=== PATIENT | male | born 1935 | race Caucasian/White ===

== ENCOUNTER 2023-03-18 00:44 | Emergency (ER) | payer OTHER, MEDICARE ==
[~2023-03-18] VITALS: Ht 177.8 cm; Wt 89.9 kg
[2023-03-18 02:30] LABS: BASO % 0.4 % (0.0-1.0); EOS # 0.2 10^3/uL (0.0-0.5); EOS % 2.2 % (0.0-3.0); HEMATOCRIT 39.1 % (42.0-52.0); HEMOGLOBIN 12.9 g/dl (13.5-17.5); LYMPH # 0.8 10^3/uL (1.5-5.0); LYMPH % 11.4 % (24.0-44.0); MEAN CORPUSCULAR HEMOGLOBIN 31.7 pg (27.0-33.0); MEAN CORPUSCULAR VOLUME 96.1 fl (80.0-96.0); MONO # 0.7 10^3/uL (0.0-0.8); MONO % 9.1 % (2.0-8.0); NEUTROPHILS # 5.6 10^3/uL (1.5-8.5); NEUTROPHILS % 76.6 % (36.0-66.0); PLATELET COUNT, AUTOMATED 202 10^3/uL (150-450); RED BLOOD COUNT 4.07 10^6/uL (4.30-6.10); WHITE BLOOD COUNT 7.3 10^3/uL (4.0-10.0)
[2023-03-18 02:38] LABS: BLOOD UREA NITROGEN 17 MG/DL (9-23); CALCIUM LEVEL 9.1 MG/DL (8.3-10.6); CARBON DIOXIDE LEVEL 25 MMOL/L (20-31); CHLORIDE LEVEL 112 MMOL/L (98-107); CK-MB VALUE MASS 1.6 NG/ML (<3.6); CREATININE FOR GFR 0.72 MG/DL (0.70-1.30); GLOMERULAR FILTRATION RATE > 60.0 (>35); GLUCOSE, FASTING 131 MG/DL (74-106); POTASSIUM SERUM 3.8 MMOL/L (3.5-5.1); SODIUM LEVEL 144 MMOL/L (136-145)
[2023-03-18 02:40] LABS: CPK CREATINE PHOSPHOKINASE 96 U/L (46-171); MB/CK RELATIVE INDEX 1.66 (< OR =4)
[2023-03-18 03:05] VITALS: BP 208/98
[2023-03-18] MEDS: NITROGLYCERIN 0.4MG SUBL TABLET SL PRN ×3 (03:05→03:15)
[2023-03-18 03:33] LABS: CK-MB VALUE MASS 1.6 NG/ML (<3.6)
[2023-03-18 03:35] LABS: MB/CK RELATIVE INDEX 2.1 (< OR =4)
[2023-03-18 05:14] LABS: CK-MB VALUE MASS 1.6 NG/ML (<3.6)
[2023-03-18 05:15] LABS: MB/CK RELATIVE INDEX 2.1 (< OR =4)
[2023-03-18 05:19] VITALS: BP 164/84; TEMP 98.1; O2SAT 98
[2023-03-18] MEDS ORDERED: amLODIPine 5 MG TAB PO ONE (05:30)
== END 2023-03-18 05:50 | disposition home or self-care (01) ==
LOC: M ED 00:44
DX: R07.89 Other chest pain (principal); I10 Essential (primary) hypertension; E78.5 Hyperlipidemia, unspecified; N40.0 Benign prostatic hyperplasia without lower urinary tract symptoms; H40.9 Unspecified glaucoma; Z79.82 Long term (current) use of aspirin; Z79.899 Other long term (current) drug therapy

== ENCOUNTER 2023-03-21 06:36 | Emergency (ER) | payer OTHER, MEDICARE ==
[~2023-03-21] VITALS: Ht 177.8 cm; Wt 87.3 kg
[2023-03-21] MEDS ORDERED: CELE1CAP7 PO (06:47)
[2023-03-21] MEDS ORDERED: LISI40TA4 PO (06:47)
[2023-03-21] MEDS ORDERED: ATOR40TA75 PO (06:47)
[2023-03-21] MEDS ORDERED: NITR0.4S14 PO (06:47)
[2023-03-21] MEDS ORDERED: HYDR12CA PO (06:47)
[2023-03-21] MEDS ORDERED: ALFU10TA3 PO (06:47)
[2023-03-21] MEDS ORDERED: TIMO0.5S20 OU (06:47)
[2023-03-21] MEDS ORDERED: hydroCHLOROthiazide 12.5 MG CAPSULE PO ONE (09:15)
[2023-03-21] MEDS ORDERED: ACETAMINOPHEN 325 MG TAB PO ONE (09:15)
[2023-03-21] MEDS ORDERED: lisinopriL 40MG TAB PO ONE (09:15)
[2023-03-21] MEDS ORDERED: diazePAM 2 MG TAB PO ONE (09:15)
[2023-03-21 10:33] VITALS: BP 172/72; TEMP 98.2; O2SAT 94
[2023-03-21] MEDS ORDERED: TRAM50TA2 PO (10:35)
[2023-03-21] MEDS ORDERED: VALI5TAB PO (10:35)
== END 2023-03-21 11:03 | disposition home or self-care (01) ==
LOC: M ED 06:36
DX: S22.42XA Multiple fractures of ribs, left side, initial encounter for closed fracture (principal); W01.0XXA Fall on same level from slipping, tripping and stumbling without subsequent striking against object, initial encounter; Y92.009 Unspecified place in unspecified non-institutional (private) residence as the place of occurrence of the external cause; Y93.01 Activity, walking, marching and hiking; Y99.8 Other external cause status; I11.9 Hypertensive heart disease without heart failure; I25.10 Atherosclerotic heart disease of native coronary artery without angina pectoris; R00.1 Bradycardia, unspecified; Z95.5 Presence of coronary angioplasty implant and graft

== ENCOUNTER 2023-03-22 09:35 | Inpatient (IN) | payer OTHER, MEDICARE ==
[~2023-03-22] VITALS: Ht 177.8 cm; Wt 87.5 kg
[~2023-03-22 09:35] MED LIST: ALFU10TA3 PO; ATOR40TA75 PO; CELE1CAP7 PO; HYDR12CA PO; LISI40TA4 PO; NITR0.4S14 PO; TIMO0.5S20 OU; TRAM50TA2 PO; VALI5TAB PO
[2023-03-22 10:24] LABS: BASO % 0.2 % (0.0-1.0); HEMATOCRIT 37.6 % (42.0-52.0); HEMOGLOBIN 12.6 g/dl (13.5-17.5); LYMPH # 0.5 10^3/uL (1.5-5.0); LYMPH % 5.4 % (24.0-44.0); MEAN CORPUSCULAR HEMOGLOBIN 31.8 pg (27.0-33.0); MEAN CORPUSCULAR HGB CONC 33.5 g/dl (32.0-36.5); MEAN CORPUSCULAR VOLUME 94.9 fl (80.0-96.0); MONO % 10.9 % (2.0-8.0); NEUTROPHILS # 7.6 10^3/uL (1.5-8.5); NEUTROPHILS % 83.1 % (36.0-66.0); PLATELET COUNT, AUTOMATED 216 10^3/uL (150-450); RED BLOOD COUNT 3.96 10^6/uL (4.30-6.10); WHITE BLOOD COUNT 9.2 10^3/uL (4.0-10.0)
[2023-03-22 10:48] LABS: CK-MB VALUE MASS 1.6 NG/ML (<3.6)
[2023-03-22 10:51] LABS: CPK CREATINE PHOSPHOKINASE 127 U/L (46-171); MB/CK RELATIVE INDEX 1.25 (< OR =4)
[2023-03-22 10:52] LABS: ALBUMIN 3.2 G/DL (3.2-5.2); ALKALINE PHOSPHATASE 72 U/L (46-116); ALT/SGPT < 9 U/L (7.0-40); AST/SGOT 9 U/L (<34); BILIRUBIN,DIRECT 0.4 MG/DL (<0.4); BILIRUBIN,TOTAL 1.1 MG/DL (0.3-1.2); BLOOD UREA NITROGEN 20 MG/DL (9-23); CALCIUM LEVEL 9.6 MG/DL (8.3-10.6); CARBON DIOXIDE LEVEL 29 MMOL/L (20-31); CHLORIDE LEVEL 106 MMOL/L (98-107); CREATININE FOR GFR 0.68 MG/DL (0.70-1.30); GLOMERULAR FILTRATION RATE > 60.0 (>35); GLUCOSE, FASTING 119 MG/DL (74-106); POTASSIUM SERUM 3.6 MMOL/L (3.5-5.1); SODIUM LEVEL 142 MMOL/L (136-145); THYROID STIMULATING HORMONE 0.393 uIU/ML (0.55-4.78); TOTAL PROTEIN 5.7 G/DL (5.7-8.2)
[2023-03-22 10:57] LABS: PROCALCITONIN 0.08 ng/ml
[2023-03-22] MEDS ORDERED: hydrALAZINE 20MG/ML 1ML VIAL IV ONE (11:40)
[2023-03-22 12:06] LABS: CK-MB VALUE MASS 1.5 NG/ML (<3.6); MB/CK RELATIVE INDEX 1.12 (< OR =4)
[2023-03-22] MEDS ORDERED: diazePAM 10MG/2ML SYRINGE IV ONE (12:35)
[2023-03-22 12:59] LABS: MAGNESIUM LEVEL 1.4 MG/DL (1.8-2.4)
[2023-03-22] MEDS ORDERED: KETOROLAC 30 MG/ML 1ML VIAL IV ONE (13:20)
[2023-03-22] MEDS ORDERED: MED REC IN PROGRESS XX SCH (13:25)
[2023-03-22] MEDS ORDERED: HOME MED LIST COMPLETE! XX SCH (13:40)
[2023-03-22] MEDS ORDERED: BISACODYL 10MG SUPP PR PRN (14:45)
[2023-03-22] MEDS ORDERED: oxyCODONE 5MG TAB PO PRN (14:45)
[2023-03-22] MEDS ORDERED: FUROSEMIDE 100MG/10ML VIAL IV ONE (16:00)
[2023-03-22 16:25] VITALS: BP 200/80; TEMP 97.9; O2SAT 95
[2023-03-22] MEDS: ACETAMINOPHEN 500 MG TAB PO SCH ×2 (17:04→22:40)
[2023-03-22] MEDS: **hydrALAZINE HCL** 25 MG TAB PO SCH ×2 (17:05→23:46)
[2023-03-22 19:05] VITALS: BP 125/80
[2023-03-22] MEDS ORDERED: HEPARIN SOD (PORCINE) 5000UNITS/ML 1ML VIAL/SYRINGE SC SCH (21:00)
[2023-03-22] MEDS ORDERED: QUEtiapine FUMARATE 12.5 MG HALF-TAB PO SCH (21:00)
[2023-03-22 22:00] VITALS: BP_SYST 162; BP_SYST 172; BP_DIAS 78; TEMP 98.1; O2SAT 94
[2023-03-22] MEDS: KETOROLAC 30 MG/ML 1ML VIAL IV SCH (22:31)
[2023-03-22] MEDS: SENOKOT S TAB PO SCH (22:39)
[2023-03-22] MEDS: MIRALAX *UNIT DOSE* 17GM PACKET PO SCH (22:41)
[2023-03-22 23:03] VITALS: BP 191/76
[2023-03-23] VITALS (36 sets, daily range): BP systolic 83–208; BP diastolic 50–90; TEMP 96.8–98.2; O2SAT 91–100
[2023-03-23] MEDS ORDERED: MAG SULF 1GM/100ML (MAG RUN) 1 GM in IV 1 EA IV ONE ×2 (01:00→08:55)
[2023-03-23] MEDS ORDERED: POTASSIUM CHLORIDE 10MEQ SR TABLET PO ONE (01:00)
[2023-03-23] MEDS: MAG SULF 1GM/100ML (MAG RUN) 1 GM in IV 1 EA IV SCH ×6 (01:07→13:12)
[2023-03-23] MEDS: KETOROLAC 30 MG/ML 1ML VIAL IV SCH ×3 (02:14→14:22)
[2023-03-23 05:57] LABS: BASO % 0.1 % (0.0-1.0); HEMATOCRIT 34.6 % (42.0-52.0); HEMOGLOBIN 11.7 g/dl (13.5-17.5); LYMPH # 0.7 10^3/uL (1.5-5.0); LYMPH % 8.6 % (24.0-44.0); MEAN CORPUSCULAR HEMOGLOBIN 31.7 pg (27.0-33.0); MEAN CORPUSCULAR HGB CONC 33.8 g/dl (32.0-36.5); MEAN CORPUSCULAR VOLUME 93.8 fl (80.0-96.0); MONO # 1.2 10^3/uL (0.0-0.8); NEUTROPHILS # 6.4 10^3/uL (1.5-8.5); NEUTROPHILS % 76.8 % (36.0-66.0); PLATELET COUNT, AUTOMATED 195 10^3/uL (150-450); RED BLOOD COUNT 3.69 10^6/uL (4.30-6.10); WHITE BLOOD COUNT 8.3 10^3/uL (4.0-10.0)
[2023-03-23] MEDS ORDERED: DOBUTamine HCL 500,000 MCG in IV 1 EA IV SCH (06:25)
[2023-03-23 06:28] LABS: BLOOD UREA NITROGEN 27 MG/DL (9-23); CALCIUM LEVEL 9.2 MG/DL (8.3-10.6); CARBON DIOXIDE LEVEL 30 MMOL/L (20-31); CHLORIDE LEVEL 103 MMOL/L (98-107); CREATININE FOR GFR 0.82 MG/DL (0.70-1.30); GLOMERULAR FILTRATION RATE > 60.0 (>35); GLUCOSE, FASTING 107 MG/DL (74-106); POTASSIUM SERUM 3.1 MMOL/L (3.5-5.1); SODIUM LEVEL 141 MMOL/L (136-145)
[2023-03-23] MEDS ORDERED: LR 500 ML IV SCH (06:40)
[2023-03-23] MEDS ORDERED: FUROSEMIDE 40MG/4ML VIAL IV SCH ×2 (09:00)
[2023-03-23] MEDS ORDERED: NITROGLYCERIN 2% OINT 1 GM *U/D* PKT TOP SCH (09:00)
[2023-03-23] MEDS ORDERED: hydrALAZINE 20MG/ML 1ML VIAL IV ONE (09:00)
[2023-03-23] MEDS: ACETAMINOPHEN 500 MG TAB PO SCH (09:00)
[2023-03-23] MEDS: SENOKOT S TAB PO SCH (09:00)
[2023-03-23] MEDS: MIRALAX *UNIT DOSE* 17GM PACKET PO SCH (09:00)
[2023-03-23 09:08] LABS: MAGNESIUM LEVEL 1.9 MG/DL (1.8-2.4)
[2023-03-23] MEDS: NITROGLYCERIN 2% OINT 1 GM *U/D* PKT TOP SCH ×2 (09:53→14:22)
[2023-03-23] MEDS ORDERED: LIDOCAINE 1% MDV 20ML VIAL As Ordered ONE (10:26)
[2023-03-23] MEDS ORDERED: hydrALAZINE 20MG/ML 1ML VIAL IV SCH (11:00)
[2023-03-23] MEDS ORDERED: SODIUM CHLORIDE 0.9% INJ 10 ML SYR IV PRN (12:15)
[2023-03-23 13:46] LABS: CK-MB VALUE MASS 3.7 NG/ML (<3.6); MAGNESIUM LEVEL 2.5 MG/DL (1.8-2.4); MB/CK RELATIVE INDEX 2.72 (< OR =4); POTASSIUM SERUM 2.8 MMOL/L (3.5-5.1)
[2023-03-23] MEDS: KCL 10MEQ/100ML SWI (KRUN) 10 MEQ in IV 1 EA IV SCH ×4 (14:15→19:44)
[2023-03-23] MEDS ORDERED: ceFAZolin SOD 2 GM in IV 1 EA IV ONE (14:30)
[2023-03-23] MEDS ORDERED: LIDOCAINE 1% SDV 30ML VIAL As Ordered ONE (14:43)
[2023-03-23] MEDS ORDERED: ISOVUE-300 61% 100ML VIAL As Ordered ONE (14:43)
[2023-03-23] MEDS ORDERED: AMIODARONE HCL 150 MG/100 ML PREMIXED BAG (NEXTERONE) As Ordered ONE (14:43)
[2023-03-23] MEDS ORDERED: fentaNYL 100 MCG/2 ML INJECTION As Ordered ONE ×3 (14:45→17:05)
[2023-03-23] MEDS ORDERED: propofoL 500 MG/50 ML VIAL As Ordered ONE (15:45)
[2023-03-23] MEDS ORDERED: ceFAZolin 2 GM/D5W 50 ML IV BAG As Ordered ONE (16:30)
[2023-03-23] MEDS ORDERED: SUCCINYLCHOLINE 100MG/5ML SYRINGE As Ordered ONE (16:42)
[2023-03-23] MEDS ORDERED: ETOMIDATE INJ 20MG/10ML VIAL As Ordered ONE (16:42)
[2023-03-23] MEDS ORDERED: KCL 10MEQ/100ML SWI (KRUN) 10 MEQ in IV 1 EA IV SCH (17:00)
[2023-03-23] MEDS ORDERED: PHENYLephrine 500MCG 5ML (100MCG/ML) SYRINGE As Ordered ONE ×2 (17:05→17:40)
[2023-03-23] MEDS ORDERED: ePHEDrine SULFATE 25 MG/5 ML(5MG/ML) SYRINGE As Ordered ONE (17:12)
[2023-03-23] MEDS ORDERED: ONDANSETRON 4MG 2ML VIAL As Ordered ONE (17:12)
[2023-03-23] MEDS ORDERED: METOCLOPRAMIDE INJ 10MG/2ML VIAL As Ordered ONE (17:12)
[2023-03-23] MEDS: MIDAZOLAM INJ 2MG/2ML VIAL IV PRN ×3 (18:06→19:06)
[2023-03-23] MEDS ORDERED: MIDAZOLAM INJ 2MG/2ML VIAL As Ordered ONE ×2 (18:06→18:21)
[2023-03-23 18:31] LABS: ABG BASE EXCESS 1.7 (-2.0-2.0); ABG O2 SATURATION 94.8 % (95.0-99.0); ABG PARTIAL PRESSURE CO2 34.8 mmHg (35.0-45.0); ABG PARTIAL PRESSURE O2 77.6 mmHg (75.0-100.0); ABG STANDARD HCO3 25.9 MMOL/L. (22.0-26.0); ABG TOTAL CO2 26.1 MMOL/L (23.0-31.0); ABG pH (ARTERIAL) 7.474 UNITS (7.350-7.450)
[2023-03-23] MEDS: MIDAZOLAM 100MG/100ML-0.9%NACL 100 MG in IV 1 EA IV SCH (18:56)
[2023-03-23] MEDS ORDERED: PANTOPRAZOLE 40MG VIAL IV SCH (19:00)
[2023-03-23] MEDS ORDERED: FENTANYL DRIP LOCK BOX KEY 1 EACH XX PRN (19:00)
[2023-03-23] MEDS ORDERED: MIDAZOLAM INJ 2MG/2ML VIAL IV STA (19:04)
[2023-03-23] MEDS: fentaNYL 100 MCG/2 ML INJECTION IV PRN (19:22)
[2023-03-23 19:50] LABS: CK-MB VALUE MASS 5.8 NG/ML (<3.6); MAGNESIUM LEVEL 2.3 MG/DL (1.8-2.4); POTASSIUM SERUM 3.3 MMOL/L (3.5-5.1)
[2023-03-23 19:51] LABS: MB/CK RELATIVE INDEX 3.91 (< OR =4)
[2023-03-23] MEDS: CHLORHEXIDINE GLUCONATE 0.12 % 15ML UDC (PERIDEX ORAL RINSE) MT SCH (20:20)
[2023-03-23] MEDS: SODIUM CHLORIDE 0.9% INJ 10 ML SYR IV SCH (20:22)
[2023-03-23] MEDS: fentaNYL CITRATE/NaCl 1,000 MCG in IV 1 EA IV SCH (20:24)
[2023-03-23] MEDS: KCL 20MEQ IN 100ML SWI (KRUN) 20 MEQ in IV 1 EA IV SCH ×8 (20:56→22:36)
[2023-03-23] MEDS ORDERED: HEPARIN SOD (PORCINE) 5000UNITS/ML 1ML VIAL/SYRINGE SQ SCH (21:00)
[2023-03-23 21:03] LABS: HEMATOCRIT 37.4 % (42.0-52.0); HEMOGLOBIN 12.3 g/dl (13.5-17.5); MEAN CORPUSCULAR HEMOGLOBIN 31.1 pg (27.0-33.0); MEAN CORPUSCULAR HGB CONC 32.9 g/dl (32.0-36.5); MEAN CORPUSCULAR VOLUME 94.7 fl (80.0-96.0); PLATELET COUNT, AUTOMATED 215 10^3/uL (150-450); RED BLOOD COUNT 3.95 10^6/uL (4.30-6.10); WHITE BLOOD COUNT 2.6 10^3/uL (4.0-10.0)
[2023-03-23] MEDS ORDERED: LR 1,000 ML IV SCH (23:55)
[2023-03-24] VITALS (43 sets, daily range): BP systolic 95–163; BP diastolic 53–91; TEMP 97.4–101.1; O2SAT 91–98
[2023-03-24] MEDS ORDERED: ceFAZolin SOD 1 GM in D5W MINI-BAG PLUS 50 ML IV SCH (00:30)
[2023-03-24] MEDS ORDERED: SODIUM CHLORIDE 0.9% 1000ML IV SCH (01:10)
[2023-03-24] MEDS ORDERED: VANCOMYCIN HCL 1,250 MG in IV FLUID PLACE HOLDER 1 EA IV SCH (01:10)
[2023-03-24 01:15] LABS: CK-MB VALUE MASS 2.8 NG/ML (<3.6); MAGNESIUM LEVEL 2.1 MG/DL (1.8-2.4)
[2023-03-24] MEDS ORDERED: PIPERACILLIN/TAZOBACTAM SOD 4.5 GM in D5W MINI-BAG PLUS 50 ML IV SCH ×2 (02:00→16:00)
[2023-03-24] MEDS ORDERED: VANCOMYCIN HCL 1,000 MG, VIAL MATE ADAPTER 1 EACH in D5W 250 ML IV ONE ×2 (03:00→04:00)
[2023-03-24] MEDS: fentaNYL 100 MCG/2 ML INJECTION IV PRN (03:10)
[2023-03-24] MEDS ORDERED: ACETAMINOPHEN *IV* 1,000 MG in IV 1 EA IV ONE (04:00)
[2023-03-24 05:18] LABS: HEMATOCRIT 28.9 % (42.0-52.0); HEMOGLOBIN 9.6 g/dl (13.5-17.5); MEAN CORPUSCULAR HEMOGLOBIN 31.7 pg (27.0-33.0); MEAN CORPUSCULAR HGB CONC 33.2 g/dl (32.0-36.5); MEAN CORPUSCULAR VOLUME 95.4 fl (80.0-96.0); PLATELET COUNT, AUTOMATED 142 10^3/uL (150-450); RED BLOOD COUNT 3.03 10^6/uL (4.30-6.10); WHITE BLOOD COUNT 6.8 10^3/uL (4.0-10.0)
[2023-03-24 05:29] LABS: CK-MB VALUE MASS 2.4 NG/ML (<3.6); MAGNESIUM LEVEL 2.1 MG/DL (1.8-2.4); POTASSIUM SERUM 3.7 MMOL/L (3.5-5.1)
[2023-03-24 05:31] LABS: CALCIUM LEVEL 7.8 MG/DL (8.3-10.6); CREATININE FOR GFR 1.32 MG/DL (0.70-1.30); GLOMERULAR FILTRATION RATE 54.6 (>35); MB/CK RELATIVE INDEX 1.77 (< OR =4); POTASSIUM SERUM 3.7 MMOL/L (3.5-5.1)
[2023-03-24] MEDS: SODIUM CHLORIDE 0.9% INJ 10 ML SYR IV SCH ×2 (06:00→17:31)
[2023-03-24 06:05] LABS: ABG BASE EXCESS -0.6 (-2.0-2.0); ABG HCO3 22.6 MMOL/L (22.0-26.0); ABG O2 SATURATION 95.7 % (95.0-99.0); ABG PARTIAL PRESSURE CO2 32.4 mmHg (35.0-45.0); ABG PARTIAL PRESSURE O2 82.8 mmHg (75.0-100.0); ABG STANDARD HCO3 23.9 MMOL/L. (22.0-26.0); ABG TOTAL CO2 23.6 MMOL/L (23.0-31.0); ABG pH (ARTERIAL) 7.462 UNITS (7.350-7.450)
[2023-03-24 06:46] LABS: LYMPHOCYTES 13 % (16-44); MONOCYTES 4 % (0-5); NEUTROPHILS 55 % (28-66)
[2023-03-24 06:47] LABS: HYPOCHROMASIA 1+
[2023-03-24 06:48] LABS: PLATELET CLUMPS SMALL AMT; PLATELET ESTIMATE NORMAL (NORMAL)
[2023-03-24] MEDS: PIPERACILLIN/TAZOBACTAM SOD 4.5 GM in D5W MINI-BAG PLUS 50 ML IV SCH ×3 (09:10→20:37)
[2023-03-24] MEDS: PANTOPRAZOLE 40MG VIAL IV SCH ×2 (09:24→20:37)
[2023-03-24] MEDS: CHLORHEXIDINE GLUCONATE 0.12 % 15ML UDC (PERIDEX ORAL RINSE) MT SCH ×2 (09:25→20:37)
[2023-03-24 09:36] LABS: HEMATOCRIT 30.4 % (42.0-52.0); MEAN CORPUSCULAR HEMOGLOBIN 31.4 pg (27.0-33.0); MEAN CORPUSCULAR HGB CONC 32.9 g/dl (32.0-36.5); MEAN CORPUSCULAR VOLUME 95.6 fl (80.0-96.0); PLATELET COUNT, AUTOMATED 150 10^3/uL (150-450); RED BLOOD COUNT 3.18 10^6/uL (4.30-6.10); WHITE BLOOD COUNT 9.5 10^3/uL (4.0-10.0)
[2023-03-24 10:03] LABS: CALCIUM LEVEL 7.7 MG/DL (8.3-10.6); CREATININE FOR GFR 1.28 MG/DL (0.70-1.30); GLOMERULAR FILTRATION RATE 56.6 (>35)
[2023-03-24] MEDS: LR 1,000 ML IV SCH ×2 (10:31→14:19)
[2023-03-24] MEDS: MIDAZOLAM INJ 2MG/2ML VIAL IV PRN ×2 (14:12→16:14)
[2023-03-24] MEDS: MIDAZOLAM 100MG/100ML-0.9%NACL 100 MG in IV 1 EA IV SCH (14:16)
[2023-03-24] MEDS: fentaNYL CITRATE/NaCl 1,000 MCG in IV 1 EA IV SCH (14:43)
[2023-03-24] MEDS ORDERED: VANCOMYCIN HCL 1,000 MG, VIAL MATE ADAPTER 1 EACH in D5W 250 ML IV SCH (15:00)
[2023-03-24 16:17] LABS: HEMATOCRIT 31.1 % (42.0-52.0); HEMOGLOBIN 10.1 g/dl (13.5-17.5); MEAN CORPUSCULAR HGB CONC 32.5 g/dl (32.0-36.5); MEAN CORPUSCULAR VOLUME 95.4 fl (80.0-96.0); PLATELET COUNT, AUTOMATED 145 10^3/uL (150-450); RED BLOOD COUNT 3.26 10^6/uL (4.30-6.10); WHITE BLOOD COUNT 11.8 10^3/uL (4.0-10.0)
[2023-03-25] VITALS (34 sets, daily range): BP systolic 126–201; BP diastolic 58–94; TEMP 97.6–99.8; O2SAT 90–97
[2023-03-25] MEDS: MIDAZOLAM INJ 2MG/2ML VIAL IV PRN ×4 (04:03→21:38)
[2023-03-25] MEDS: PIPERACILLIN/TAZOBACTAM SOD 4.5 GM in D5W MINI-BAG PLUS 50 ML IV SCH ×4 (04:06→20:08)
[2023-03-25] MEDS: fentaNYL 100 MCG/2 ML INJECTION IV PRN ×3 (04:06→23:56)
[2023-03-25 04:27] LABS: HEMATOCRIT 28.1 % (42.0-52.0); HEMOGLOBIN 9.3 g/dl (13.5-17.5); MEAN CORPUSCULAR HEMOGLOBIN 31.6 pg (27.0-33.0); MEAN CORPUSCULAR HGB CONC 33.1 g/dl (32.0-36.5); MEAN CORPUSCULAR VOLUME 95.6 fl (80.0-96.0); PLATELET COUNT, AUTOMATED 131 10^3/uL (150-450); RED BLOOD COUNT 2.94 10^6/uL (4.30-6.10); WHITE BLOOD COUNT 10.1 10^3/uL (4.0-10.0)
[2023-03-25 04:58] LABS: ALKALINE PHOSPHATASE 39 U/L (46-116); ALT/SGPT < 9 U/L (7.0-40); AST/SGOT 13 U/L (<34); BILIRUBIN,TOTAL 0.7 MG/DL (0.3-1.2); BLOOD UREA NITROGEN 43 MG/DL (9-23); CALCIUM LEVEL 7.9 MG/DL (8.3-10.6); CARBON DIOXIDE LEVEL 28 MMOL/L (20-31); CHLORIDE LEVEL 108 MMOL/L (98-107); CREATININE FOR GFR 1.03 MG/DL (0.70-1.30); GLOMERULAR FILTRATION RATE > 60.0 (>35); GLUCOSE, FASTING 92 MG/DL (74-106); POTASSIUM SERUM 3.5 MMOL/L (3.5-5.1); SODIUM LEVEL 141 MMOL/L (136-145); TOTAL PROTEIN 4.2 G/DL (5.7-8.2)
[2023-03-25 05:19] LABS: LYMPHOCYTES 5 % (16-44); MONOCYTES 2 % (0-5); MYELOCYTES 2 % (0-0); NEUTROPHILS 91 % (28-66); PLATELET ESTIMATE NORMAL (NORMAL)
[2023-03-25] MEDS: fentaNYL CITRATE/NaCl 1,000 MCG in IV 1 EA IV SCH ×2 (05:20→19:39)
[2023-03-25] MEDS: SODIUM CHLORIDE 0.9% INJ 10 ML SYR IV SCH ×2 (05:39→17:04)
[2023-03-25] MEDS: MIDAZOLAM 100MG/100ML-0.9%NACL 100 MG in IV 1 EA IV SCH (06:38)
[2023-03-25] MEDS: PANTOPRAZOLE 40MG VIAL IV SCH ×2 (09:10→20:08)
[2023-03-25] MEDS: CHLORHEXIDINE GLUCONATE 0.12 % 15ML UDC (PERIDEX ORAL RINSE) MT SCH ×2 (09:11→20:10)
[2023-03-25] MEDS ORDERED: dexmedeTOMIDine (4MCG/ML)200MCG/50ML BTL (PRECEDEX) As Ordered ONE (09:19)
[2023-03-25] MEDS: dexmedeTOMidine 200 MCG in IV 1 EA IV SCH ×5 (09:43→22:42)
[2023-03-25] MEDS: hydrALAZINE 20MG/ML 1ML VIAL IV PRN ×3 (15:51→22:43)
[2023-03-25] MEDS: lisinopriL 40MG TAB PO SCH (16:17)
[2023-03-25] MEDS: hydroCHLOROthiazide 12.5 MG CAPSULE PO SCH (16:17)
[2023-03-25] MEDS: NITROGLYCERIN 2% OINT 1 GM *U/D* PKT TOP SCH (20:09)
[2023-03-26] VITALS (44 sets, daily range): BP systolic 113–219; BP diastolic 56–95; TEMP 97–98.1; O2SAT 94–98
[2023-03-26] MEDS: dexmedeTOMidine 200 MCG in IV 1 EA IV SCH ×10 (00:53→23:16)
[2023-03-26] MEDS: NITROGLYCERIN 2% OINT 1 GM *U/D* PKT TOP SCH ×6 (00:54→20:11)
[2023-03-26] MEDS: MIDAZOLAM INJ 2MG/2ML VIAL IV PRN ×7 (01:46→23:15)
[2023-03-26] MEDS: PIPERACILLIN/TAZOBACTAM SOD 4.5 GM in D5W MINI-BAG PLUS 50 ML IV SCH ×4 (03:09→20:12)
[2023-03-26] MEDS: fentaNYL 100 MCG/2 ML INJECTION IV PRN ×5 (04:31→22:01)
[2023-03-26] MEDS: SODIUM CHLORIDE 0.9% INJ 10 ML SYR IV SCH ×2 (04:43→18:12)
[2023-03-26 04:59] LABS: BASO % 0.2 % (0.0-1.0); EOS % 0.2 % (0.0-3.0); HEMATOCRIT 30.5 % (42.0-52.0); HEMOGLOBIN 10.2 g/dl (13.5-17.5); LYMPH # 0.4 10^3/uL (1.5-5.0); LYMPH % 2.9 % (24.0-44.0); MEAN CORPUSCULAR HEMOGLOBIN 31.9 pg (27.0-33.0); MEAN CORPUSCULAR HGB CONC 33.4 g/dl (32.0-36.5); MEAN CORPUSCULAR VOLUME 95.3 fl (80.0-96.0); MONO # 0.8 10^3/uL (0.0-0.8); MONO % 6.1 % (2.0-8.0); NEUTROPHILS # 11.3 10^3/uL (1.5-8.5); NEUTROPHILS % 90.1 % (36.0-66.0); PLATELET COUNT, AUTOMATED 147 10^3/uL (150-450); WHITE BLOOD COUNT 12.5 10^3/uL (4.0-10.0)
[2023-03-26 05:27] LABS: ALKALINE PHOSPHATASE 54 U/L (46-116); ALT/SGPT 14 U/L (7.0-40); AST/SGOT 21 U/L (<34); BILIRUBIN,TOTAL 0.9 MG/DL (0.3-1.2); BLOOD UREA NITROGEN 23 MG/DL (9-23); CARBON DIOXIDE LEVEL 27 MMOL/L (20-31); CHLORIDE LEVEL 109 MMOL/L (98-107); GLOMERULAR FILTRATION RATE > 60.0 (>35); GLUCOSE, FASTING 128 MG/DL (74-106); POTASSIUM SERUM 3.7 MMOL/L (3.5-5.1); SODIUM LEVEL 141 MMOL/L (136-145); TOTAL PROTEIN 4.3 G/DL (5.7-8.2)
[2023-03-26] MEDS: fentaNYL CITRATE/NaCl 1,000 MCG in IV 1 EA IV SCH (06:18)
[2023-03-26] MEDS: hydrALAZINE 20MG/ML 1ML VIAL IV PRN ×4 (07:49→19:03)
[2023-03-26] MEDS ORDERED: FUROSEMIDE 40MG/4ML VIAL IV ONE (08:10)
[2023-03-26] MEDS: PANTOPRAZOLE 40MG VIAL IV SCH ×2 (08:45→20:11)
[2023-03-26] MEDS: lisinopriL 40MG TAB PO SCH (08:46)
[2023-03-26] MEDS: CHLORHEXIDINE GLUCONATE 0.12 % 15ML UDC (PERIDEX ORAL RINSE) MT SCH ×2 (08:46→20:11)
[2023-03-26] MEDS: hydroCHLOROthiazide 12.5 MG CAPSULE PO SCH ×3 (08:46→13:15)
[2023-03-26] MEDS: LR 1,000 ML IV SCH (08:48)
[2023-03-26] MEDS: ENOXAPARIN 40MG/0.4ML SYRINGE (J1650 PER 10MG) SC SCH (11:19)
[2023-03-26] MEDS ORDERED: ETOMIDATE INJ 20MG/10ML VIAL IV STA (14:37)
[2023-03-26] MEDS ORDERED: SUCCINYLCHOLINE INJ 200MG/10ML VIAL IV STA (14:39)
[2023-03-26] MEDS ORDERED: MIDAZOLAM INJ 2MG/2ML VIAL IV STA (15:15)
[2023-03-26] MEDS: LIDOCAINE 5% (LIDODERM) PATCH TD SCH (16:44)
[2023-03-26] MEDS: MIDAZOLAM 100MG/100ML-0.9%NACL 100 MG in IV 1 EA IV SCH (18:25)
[2023-03-27] VITALS (51 sets, daily range): BP systolic 86–242; BP diastolic 50–175; TEMP 97.1–101; O2SAT 91–96
[2023-03-27] MEDS: hydrALAZINE 20MG/ML 1ML VIAL IV PRN ×4 (00:04→08:17)
[2023-03-27] MEDS: fentaNYL 100 MCG/2 ML INJECTION IV PRN ×8 (00:16→20:14)
[2023-03-27] MEDS: MIDAZOLAM INJ 2MG/2ML VIAL IV PRN ×7 (01:08→22:45)
[2023-03-27] MEDS: NITROGLYCERIN 2% OINT 1 GM *U/D* PKT TOP SCH ×6 (01:11→20:39)
[2023-03-27] MEDS: LR 1,000 ML IV SCH ×2 (01:26→20:48)
[2023-03-27] MEDS: dexmedeTOMidine 200 MCG in IV 1 EA IV SCH ×12 (01:26→23:54)
[2023-03-27] MEDS: PIPERACILLIN/TAZOBACTAM SOD 4.5 GM in D5W MINI-BAG PLUS 50 ML IV SCH ×4 (02:30→20:39)
[2023-03-27 05:13] LABS: BASO % 0.1 % (0.0-1.0); HEMATOCRIT 30.7 % (42.0-52.0); HEMOGLOBIN 10.4 g/dl (13.5-17.5); LYMPH # 0.4 10^3/uL (1.5-5.0); LYMPH % 3.2 % (24.0-44.0); MEAN CORPUSCULAR HEMOGLOBIN 31.5 pg (27.0-33.0); MEAN CORPUSCULAR HGB CONC 33.9 g/dl (32.0-36.5); MONO % 7.1 % (2.0-8.0); NEUTROPHILS # 11.8 10^3/uL (1.5-8.5); NEUTROPHILS % 88.6 % (36.0-66.0); PLATELET COUNT, AUTOMATED 201 10^3/uL (150-450); WHITE BLOOD COUNT 13.4 10^3/uL (4.0-10.0)
[2023-03-27 05:24] LABS: ALBUMIN 1.9 G/DL (3.2-5.2); ALKALINE PHOSPHATASE 58 U/L (46-116); ALT/SGPT 16 U/L (7.0-40); AST/SGOT 24 U/L (<34); BILIRUBIN,TOTAL 0.8 MG/DL (0.3-1.2); BLOOD UREA NITROGEN 22 MG/DL (9-23); CALCIUM LEVEL 8.2 MG/DL (8.3-10.6); CARBON DIOXIDE LEVEL 24 MMOL/L (20-31); CHLORIDE LEVEL 107 MMOL/L (98-107); CREATININE FOR GFR 0.76 MG/DL (0.70-1.30); GLOMERULAR FILTRATION RATE > 60.0 (>35); GLUCOSE, FASTING 145 MG/DL (74-106); SODIUM LEVEL 143 MMOL/L (136-145); TOTAL PROTEIN 4.4 G/DL (5.7-8.2)
[2023-03-27] MEDS: SODIUM CHLORIDE 0.9% INJ 10 ML SYR IV SCH ×2 (06:00→17:08)
[2023-03-27] MEDS ORDERED: POTASSIUM CHLORIDE 10MEQ SR TABLET PO ONE (07:00)
[2023-03-27] MEDS ORDERED: KCL 10MEQ/100ML SWI (KRUN) 10 MEQ in IV 1 EA IV SCH (07:00)
[2023-03-27] MEDS: hydroCHLOROthiazide 12.5 MG CAPSULE PO SCH (08:16)
[2023-03-27] MEDS: lisinopriL 40MG TAB PO SCH (08:16)
[2023-03-27] MEDS: ENOXAPARIN 40MG/0.4ML SYRINGE (J1650 PER 10MG) SC SCH (08:16)
[2023-03-27] MEDS: CHLORHEXIDINE GLUCONATE 0.12 % 15ML UDC (PERIDEX ORAL RINSE) MT SCH ×2 (08:20→20:38)
[2023-03-27] MEDS: KCL 20MEQ IN 100ML SWI (KRUN) 20 MEQ in IV 1 EA IV SCH ×4 (08:20→09:50)
[2023-03-27] MEDS: LIDOCAINE 5% (LIDODERM) PATCH TD SCH (08:20)
[2023-03-27] MEDS: PANTOPRAZOLE 40MG VIAL IV SCH ×2 (08:24→20:39)
[2023-03-27] MEDS ORDERED: FUROSEMIDE 100MG/10ML VIAL IV ONE (10:55)
[2023-03-27] MEDS: MIDAZOLAM 100MG/100ML-0.9%NACL 100 MG in IV 1 EA IV SCH (17:35)
[2023-03-27] MEDS: fentaNYL CITRATE/NaCl 1,000 MCG in IV 1 EA IV SCH (18:54)
[2023-03-27] MEDS: QUEtiapine FUMARATE 200 MG TAB PO SCH (20:39)
[2023-03-28] VITALS (45 sets, daily range): BP systolic 112–201; BP diastolic 58–99; TEMP 97–98.4; O2SAT 92–96
[2023-03-28] MEDS: NITROGLYCERIN 2% OINT 1 GM *U/D* PKT TOP SCH ×6 (01:15→20:14)
[2023-03-28] MEDS: hydrALAZINE 20MG/ML 1ML VIAL IV PRN ×2 (01:16→22:07)
[2023-03-28] MEDS: dexmedeTOMidine 200 MCG in IV 1 EA IV SCH ×7 (01:23→10:30)
[2023-03-28] MEDS: fentaNYL 100 MCG/2 ML INJECTION IV PRN ×2 (01:53→11:49)
[2023-03-28] MEDS: MIDAZOLAM INJ 2MG/2ML VIAL IV PRN ×3 (02:01→11:49)
[2023-03-28] MEDS: PIPERACILLIN/TAZOBACTAM SOD 4.5 GM in D5W MINI-BAG PLUS 50 ML IV SCH ×4 (02:12→20:15)
[2023-03-28 04:23] LABS: EOS % 0.7 % (0.0-3.0); HEMATOCRIT 28.9 % (42.0-52.0); HEMOGLOBIN 9.6 g/dl (13.5-17.5); LYMPH # 0.6 10^3/uL (1.5-5.0); LYMPH % 9.3 % (24.0-44.0); MEAN CORPUSCULAR HEMOGLOBIN 31.4 pg (27.0-33.0); MEAN CORPUSCULAR HGB CONC 33.2 g/dl (32.0-36.5); MEAN CORPUSCULAR VOLUME 94.4 fl (80.0-96.0); MONO # 0.7 10^3/uL (0.0-0.8); MONO % 11.7 % (2.0-8.0); NEUTROPHILS # 4.7 10^3/uL (1.5-8.5); PLATELET COUNT, AUTOMATED 196 10^3/uL (150-450); RED BLOOD COUNT 3.06 10^6/uL (4.30-6.10); WHITE BLOOD COUNT 6.1 10^3/uL (4.0-10.0)
[2023-03-28 05:05] LABS: ALBUMIN 1.7 G/DL (3.2-5.2); ALKALINE PHOSPHATASE 49 U/L (46-116); ALT/SGPT 28 U/L (7.0-40); AST/SGOT 27 U/L (<34); BILIRUBIN,TOTAL 0.5 MG/DL (0.3-1.2); BLOOD UREA NITROGEN 28 MG/DL (9-23); CALCIUM LEVEL 8.5 MG/DL (8.3-10.6); CARBON DIOXIDE LEVEL 29 MMOL/L (20-31); CHLORIDE LEVEL 109 MMOL/L (98-107); CREATININE FOR GFR 0.77 MG/DL (0.70-1.30); GLOMERULAR FILTRATION RATE > 60.0 (>35); GLUCOSE, FASTING 141 MG/DL (74-106); POTASSIUM SERUM 2.7 MMOL/L (3.5-5.1); SODIUM LEVEL 146 MMOL/L (136-145); TOTAL PROTEIN 4.1 G/DL (5.7-8.2)
[2023-03-28] MEDS: SODIUM CHLORIDE 0.9% INJ 10 ML SYR IV SCH ×2 (06:00→17:43)
[2023-03-28] MEDS: KCL 20MEQ IN 100ML SWI (KRUN) 20 MEQ in IV 1 EA IV SCH ×14 (06:09→22:51)
[2023-03-28] MEDS: CHLORHEXIDINE GLUCONATE 0.12 % 15ML UDC (PERIDEX ORAL RINSE) MT SCH (09:06)
[2023-03-28] MEDS: ENOXAPARIN 40MG/0.4ML SYRINGE (J1650 PER 10MG) SC SCH (09:06)
[2023-03-28] MEDS: lisinopriL 40MG TAB PO SCH (09:07)
[2023-03-28] MEDS: PANTOPRAZOLE 40MG VIAL IV SCH ×2 (09:07→20:14)
[2023-03-28] MEDS: hydroCHLOROthiazide 12.5 MG CAPSULE PO SCH (09:08)
[2023-03-28] MEDS: LIDOCAINE 5% (LIDODERM) PATCH TD SCH (09:08)
[2023-03-28] MEDS ORDERED: FUROSEMIDE 100MG/10ML VIAL IV ONE (09:45)
[2023-03-28] MEDS ORDERED: SCOPOLAMINE 1MG TRANSDERMAL PATCH TOP ONE (14:00)
[2023-03-28] MEDS ORDERED: LORazepam 2 MG/ML 1ML VIAL IV PRN (14:00)
[2023-03-28] MEDS: MIDAZOLAM 100MG/100ML-0.9%NACL 100 MG in IV 1 EA IV SCH (17:34)
[2023-03-28] MEDS: QUEtiapine FUMARATE 200 MG TAB PO SCH (19:40)
[2023-03-28 20:03] LABS: MAGNESIUM LEVEL 1.5 MG/DL (1.8-2.4); POTASSIUM SERUM 2.8 MMOL/L (3.5-5.1)
[2023-03-28] MEDS: MAG SULF 1GM/100ML (MAG RUN) 1 GM in IV 1 EA IV SCH ×2 (22:06→22:58)
[2023-03-29] VITALS (36 sets, daily range): BP systolic 144–196; BP diastolic 65–115; TEMP 97.5–98.9; O2SAT 94–97
[2023-03-29] MEDS: NITROGLYCERIN 2% OINT 1 GM *U/D* PKT TOP SCH ×6 (01:25→20:15)
[2023-03-29] MEDS: PIPERACILLIN/TAZOBACTAM SOD 4.5 GM in D5W MINI-BAG PLUS 50 ML IV SCH (03:25)
[2023-03-29] MEDS: hydrALAZINE 20MG/ML 1ML VIAL IV PRN ×10 (04:08→23:02)
[2023-03-29] MEDS: SODIUM CHLORIDE 0.9% INJ 10 ML SYR IV SCH ×2 (06:00→18:07)
[2023-03-29 06:16] LABS: BASO % 0.2 % (0.0-1.0); HEMATOCRIT 34.8 % (42.0-52.0); LYMPH # 0.6 10^3/uL (1.5-5.0); LYMPH % 5.8 % (24.0-44.0); MEAN CORPUSCULAR HEMOGLOBIN 31.4 pg (27.0-33.0); MEAN CORPUSCULAR HGB CONC 33.6 g/dl (32.0-36.5); MEAN CORPUSCULAR VOLUME 93.3 fl (80.0-96.0); MONO % 9.2 % (2.0-8.0); NEUTROPHILS # 8.9 10^3/uL (1.5-8.5); PLATELET COUNT, AUTOMATED 289 10^3/uL (150-450); RED BLOOD COUNT 3.73 10^6/uL (4.30-6.10); WHITE BLOOD COUNT 10.7 10^3/uL (4.0-10.0)
[2023-03-29 06:44] LABS: HEMOGLOBIN 11.7 g/dl (13.5-17.5)
[2023-03-29 06:51] LABS: ALBUMIN 2.1 G/DL (3.2-5.2); ALKALINE PHOSPHATASE 64 U/L (46-116); ALT/SGPT 82 U/L (7.0-40); AST/SGOT 78 U/L (<34); BILIRUBIN,TOTAL 0.7 MG/DL (0.3-1.2); BLOOD UREA NITROGEN 23 MG/DL (9-23); CARBON DIOXIDE LEVEL 25 MMOL/L (20-31); CHLORIDE LEVEL 110 MMOL/L (98-107); GLOMERULAR FILTRATION RATE > 60.0 (>35); GLUCOSE, FASTING 128 MG/DL (74-106); MAGNESIUM LEVEL 1.8 MG/DL (1.8-2.4); PHOSPHORUS LEVEL 2.9 MG/DL (2.4-5.1); POTASSIUM SERUM 3.1 MMOL/L (3.5-5.1); SODIUM LEVEL 149 MMOL/L (136-145); TOTAL PROTEIN 4.9 G/DL (5.7-8.2)
[2023-03-29] MEDS: KCL 20MEQ IN 100ML SWI (KRUN) 20 MEQ in IV 1 EA IV SCH ×4 (07:03→08:41)
[2023-03-29] MEDS: PANTOPRAZOLE 40MG VIAL IV SCH ×2 (08:40→20:14)
[2023-03-29] MEDS: LIDOCAINE 5% (LIDODERM) PATCH TD SCH (08:40)
[2023-03-29] MEDS: hydroCHLOROthiazide 12.5 MG CAPSULE PO SCH (08:41)
[2023-03-29] MEDS: lisinopriL 40MG TAB PO SCH (08:42)
[2023-03-29] MEDS: ENOXAPARIN 40MG/0.4ML SYRINGE (J1650 PER 10MG) SC SCH (08:43)
[2023-03-29] MEDS: MORPHINE 2 MG/ML 1ML VIAL IV PRN (12:31)
[2023-03-29] MEDS: D5W/LR 1,000 ML IV SCH (13:45)
[2023-03-30] VITALS (19 sets, daily range): BP systolic 148–206; BP diastolic 67–119; TEMP 96.4–100.3; O2SAT 91–97
[2023-03-30] MEDS: hydrALAZINE 20MG/ML 1ML VIAL IV PRN ×4 (01:58→14:16)
[2023-03-30] MEDS: NITROGLYCERIN 2% OINT 1 GM *U/D* PKT TOP SCH ×5 (01:58→17:01)
[2023-03-30] MEDS: MORPHINE 2 MG/ML 1ML VIAL IV PRN ×3 (04:19→20:55)
[2023-03-30 04:37] LABS: HEMOGLOBIN 10.8 g/dl (13.5-17.5); MEAN CORPUSCULAR HEMOGLOBIN 31.1 pg (27.0-33.0); MEAN CORPUSCULAR HGB CONC 32.7 g/dl (32.0-36.5); MEAN CORPUSCULAR VOLUME 95.1 fl (80.0-96.0); PLATELET COUNT, AUTOMATED 342 10^3/uL (150-450); RED BLOOD COUNT 3.47 10^6/uL (4.30-6.10); WHITE BLOOD COUNT 12.4 10^3/uL (4.0-10.0)
[2023-03-30] MEDS: SODIUM CHLORIDE 0.9% INJ 10 ML SYR IV SCH (05:04)
[2023-03-30 05:16] LABS: ALBUMIN 2.2 G/DL (3.2-5.2); ALKALINE PHOSPHATASE 69 U/L (46-116); ALT/SGPT 62 U/L (7.0-40); AST/SGOT 34 U/L (<34); BILIRUBIN,TOTAL 0.6 MG/DL (0.3-1.2); BLOOD UREA NITROGEN 26 MG/DL (9-23); CALCIUM LEVEL 8.9 MG/DL (8.3-10.6); CARBON DIOXIDE LEVEL 26 MMOL/L (20-31); CHLORIDE LEVEL 114 MMOL/L (98-107); CREATININE FOR GFR 0.83 MG/DL (0.70-1.30); GLOMERULAR FILTRATION RATE > 60.0 (>35); GLUCOSE, FASTING 148 MG/DL (74-106); MAGNESIUM LEVEL 1.8 MG/DL (1.8-2.4); PHOSPHORUS LEVEL 2.2 MG/DL (2.4-5.1); POTASSIUM SERUM 3.1 MMOL/L (3.5-5.1); SODIUM LEVEL 151 MMOL/L (136-145)
[2023-03-30] MEDS ORDERED: KCL 10MEQ/100ML SWI (KRUN) 10 MEQ in IV 1 EA IV SCH (05:30)
[2023-03-30] MEDS: KCL 20MEQ IN 100ML SWI (KRUN) 20 MEQ in IV 1 EA IV SCH ×4 (05:45→06:48)
[2023-03-30] MEDS: hydroCHLOROthiazide 12.5 MG CAPSULE PO SCH (08:58)
[2023-03-30] MEDS: lisinopriL 40MG TAB PO SCH (08:58)
[2023-03-30] MEDS ORDERED: LABETALOL 100MG/20ML VIAL IV PRN (09:05)
[2023-03-30] MEDS: PANTOPRAZOLE 40MG VIAL IV SCH (09:42)
[2023-03-30] MEDS: ENOXAPARIN 40MG/0.4ML SYRINGE (J1650 PER 10MG) SC SCH (09:42)
[2023-03-30] MEDS: POTASSIUM PHOSPHATE INJ 30 MMOL in D5W 500 ML IV SCH ×2 (09:46→16:58)
[2023-03-30] MEDS: LIDOCAINE 5% (LIDODERM) PATCH TD SCH (09:47)
[2023-03-30] MEDS: D5W/LR 1,000 ML IV SCH (09:47)
[2023-03-30] MEDS ORDERED: ATROPINE SULFATE 1% OPHTH SOLN 2ML BTL SL PRN (17:40)
[2023-03-30] MEDS ORDERED: ONDANSETRON 4MG 2ML VIAL IV PRN (17:40)
[2023-03-30] MEDS ORDERED: SCOPOLAMINE 1MG TRANSDERMAL PATCH TOP PRN (17:40)
[2023-03-31] MEDS: MORPHINE 2 MG/ML 1ML VIAL IV PRN ×3 (00:03→23:32)
[2023-03-31] MEDS: LORazepam 2 MG/ML 1ML VIAL IV PRN ×5 (01:56→23:32)
[2023-03-31] MEDS: LIDOCAINE 5% (LIDODERM) PATCH TD SCH (07:26)
[2023-03-31] MEDS ORDERED: PANTOPRAZOLE 40MG VIAL IV SCH ×2 (09:00)
[2023-03-31] MEDS ORDERED: PANTOPRAZOLE 40MG TAB (PROTONIX) PO SCH (09:00)
[2023-03-31] MEDS ORDERED: SIMETHICONE 80MG CHEW TAB PO PRN (11:10)
[2023-03-31] MEDS ORDERED: SALIVA SUBSTITUTE(MOUTHKOTE) BTL MT PRN (13:05)
[2023-03-31] MEDS: MORPHINE 10MG/0.5ML ORAL CONCENTRATE SOLUTION U/D SL PRN ×2 (13:12→16:23)
[2023-04-01] MEDS: MORPHINE 2 MG/ML 1ML VIAL IV PRN ×2 (01:49→05:57)
[2023-04-01] MEDS: LORazepam 2 MG/ML 1ML VIAL IV PRN ×4 (01:50→16:16)
[2023-04-01] MEDS: LORazepam 2 MG TAB PO PRN ×4 (08:44→20:32)
[2023-04-01] MEDS: MORPHINE 10MG/0.5ML ORAL CONCENTRATE SOLUTION U/D SL PRN ×6 (08:45→21:05)
[2023-04-01] MEDS: LIDOCAINE 5% (LIDODERM) PATCH TD SCH (11:08)
[2023-04-02] MEDS: LORazepam 2 MG TAB PO PRN (00:06)
[2023-04-02] MEDS: MORPHINE 10MG/0.5ML ORAL CONCENTRATE SOLUTION U/D SL PRN ×4 (00:06→08:28)
[2023-04-02] MEDS ORDERED: LORazepam 2 MG/ML 1ML VIAL IV ONE (00:40)
[2023-04-02] MEDS: LORazepam 2 MG/ML 1ML VIAL IV PRN ×2 (04:44→08:08)
[2023-04-02] MEDS: MORPHINE 2 MG/ML 1ML VIAL IV PRN (08:01)
[2023-04-02] MEDS: LIDOCAINE 5% (LIDODERM) PATCH TD SCH (09:00)
[2023-04-04] MEDS ORDERED: FENTANYL REMOVAL DOCUMENTATION MISC XX SCH (22:00)
== END 2023-04-02 09:00 | disposition expired | DRG 171 ==
LOC: EDBD 09:35 → M ED 09:35 → M ED INP 09:36 → ENRESERV 15:09 → M MSPAV 16:18 → M PCU 03-23 06:45 → OBSVTOIN 03-23 10:49 → M ICU 03-23 18:42 → M MSPAV 03-31 10:21
PROVIDERS: ADMIT Internal Medicine Nephrology; ATTEND Family Medicine
PROC: B246ZZZ Ultrasonography of Right and Left Heart (ICD-10-PCS; 2023-03-22)
PROC: 02HK3JZ Insertion of Pacemaker Lead into Right Ventricle, Percutaneous Approach (ICD-10-PCS; 2023-03-23)
PROC: 02H63JZ Insertion of Pacemaker Lead into Right Atrium, Percutaneous Approach (ICD-10-PCS; 2023-03-23)
PROC: 0BH17EZ Insertion of Endotracheal Airway into Trachea, Via Natural or Artificial Opening (ICD-10-PCS; 2023-03-23)
PROC: 5A1955Z Respiratory Ventilation, Greater than 96 Consecutive Hours (ICD-10-PCS; 2023-03-23)
PROC: 02HV33Z Insertion of Infusion Device into Superior Vena Cava, Percutaneous Approach (ICD-10-PCS; 2023-03-23)
PROC: 0JH606Z Insertion of Pacemaker, Dual Chamber into Chest Subcutaneous Tissue and Fascia, Open Approach (ICD-10-PCS; principal; 2023-03-23 14:00)
DX: I44.2 Atrioventricular block, complete (principal); J96.01 Acute respiratory failure with hypoxia; I21.A1 Myocardial infarction type 2; J69.0 Pneumonitis due to inhalation of food and vomit; G93.41 Metabolic encephalopathy; I47.20 Ventricular tachycardia, unspecified; I11.0 Hypertensive heart disease with heart failure; K31.84 Gastroparesis; N17.9 Acute kidney failure, unspecified; I50.32 Chronic diastolic (congestive) heart failure; S22.42XA Multiple fractures of ribs, left side, initial encounter for closed fracture; M48.02 Spinal stenosis, cervical region; E83.42 Hypomagnesemia; R13.10 Dysphagia, unspecified; I45.10 Unspecified right bundle-branch block; F03.90 Unspecified dementia, unspecified severity, without behavioral disturbance, psychotic disturbance, mood disturbance, and anxiety; D64.9 Anemia, unspecified; Z51.5 Encounter for palliative care; Z66 Do not resuscitate; I25.10 Atherosclerotic heart disease of native coronary artery without angina pectoris; E78.5 Hyperlipidemia, unspecified; N40.1 Benign prostatic hyperplasia with lower urinary tract symptoms; H40.9 Unspecified glaucoma; W18.09XA Striking against other object with subsequent fall, initial encounter; Y93.9 Activity, unspecified; Y92.9 Unspecified place or not applicable; Y99.8 Other external cause status; M62.838 Other muscle spasm; Z79.899 Other long term (current) drug therapy; Z95.5 Presence of coronary angioplasty implant and graft; M51.34 Other intervertebral disc degeneration, thoracic region; M85.80 Other specified disorders of bone density and structure, unspecified site; Z85.828 Personal history of other malignant neoplasm of skin; Z96.652 Presence of left artificial knee joint; Z98.41 Cataract extraction status, right eye; Z98.42 Cataract extraction status, left eye; I16.0 Hypertensive urgency; R33.9 Retention of urine, unspecified; E87.6 Hypokalemia; J98.11 Atelectasis; R53.1 Weakness; I49.3 Ventricular premature depolarization